=== PATIENT | female | born 1980 | race Caucasian/White ===

== ENCOUNTER 2016-12-25 08:51 | Emergency (ER) | payer SELFPAY ==
--- NOTE | ~2016-12-25 | ER ---
PATIENT'S NAME: ESTEFANIA HUSAIN [facility] AGE: 36 Y [address] ROOM: [place] [address] LOCATION: [facility] ADMIT DATE: 12/25/2016 ER/Outpatient Report DISCHARGE DATE: 12/25/2016 FAMILY PHYSICIAN: Duke Burkett MD ATTENDING PHYSICIAN: Mariza Andrew Time of Arrival: 0851 hours. Time Seen: 0907 hours. IDENTIFICATION: A 36-year-old female. CHIEF COMPLAINT: Left side pain. HISTORY OF PRESENT ILLNESS: The patient is a 36-year-old female who presents with complaints of pain in her left upper abdomen, lower chest area, worse with a deep breath. She has been coughing for a week, cough productive of yellow sputum. No fever or chills. She was evaluated at the [facility] yesterday and reports that she had a CAT scan. She was told she was constipated. She has no ill contacts. No nausea or vomiting. ALLERGIES: PENICILLIN. CURRENT MEDICATIONS: Denies. MEDICAL PROBLEMS: Denies. PRIOR SURGERIES: Cholecystectomy. SOCIAL HISTORY: The patient lives here in [facility]. Tobacco use, half pack per day. Alcohol use, denies. Drug use, denies. REVIEW OF SYSTEMS: All systems reviewed and negative other than what is noted in the HPI. FAMILY HISTORY: No pertinent family history identified. PATIENT'S NAME: ESTEFANIA HUSAIN [facility] AGE: 36 Y [address] ROOM: [place] [address] LOCATION: ED ADMIT DATE: 12/25/2016 ER/Outpatient Report DISCHARGE DATE: 12/25/2016 FAMILY PHYSICIAN: Duke Burkett MD ATTENDING PHYSICIAN: Mariza Andrew PHYSICAL EXAMINATION: VITAL SIGNS: Weight 142.3 kg, pulse 104, respirations 22, temperature 96.8, and sats 98%, blood pressure 150/86. Recheck of vital signs; blood pressure 138/96, pulse 105, respirations 20, temperature 96.8, and saturations 97%. Pain improved from an 8 to a 3 with Toradol. HEENT: Head; normocephalic, atraumatic. Ears; TMs translucent, AU. Eyes; pupils equal and reactive to light and accommodation. Extraocular movements intact. Nose; mucosa pink. No lesions or drainage. Mouth; no lesions. Pharynx benign. NECK: Supple. No lymphadenopathy. No thyromegaly. LUNGS: Clear to auscultation. Breath sounds are equal. No rhonchi, wheezes, or rales. HEART: Sinus tachycardia. No murmur, rub, or gallop. ABDOMEN: Bowel sounds present. Soft, nondistended. No hepatosplenomegaly. No palpable masses. Nontender. No CVA tenderness. SKIN: [place], warm, and dry. No lesions or rashes noted. NEURO: No focal deficit. LABORATORY DATA AND X-RAYS: UA is negative. Urine HCG is negative. Hemoglobin 15.2, hematocrit 45.5, platelets 304, white count 10.6 with a normal differential. Sodium 138, potassium 4.0, chloride 103, CO2 of 25, BUN 6, creatinine 0.8, blood sugar 101. Liver enzymes normal. Amylase 23, lipase 115. D-dimer 0.45. Labs and results were reviewed from [facility]. CT scan of the abdomen and pelvis with IV contrast for left upper quadrant pain showed mild cardiomegaly without CHF, moderate fatty infiltration of the liver, pleural thickening versus tiny left pleural effusion, status post cholecystectomy, degenerative changes of the lumbar spine. Acute abdominal x-ray series; moderate amount of stool present, borderline cardiomegaly. Sedimentation rate 7. Amylase 26, lipase 19. CRP 1.02. This is on 12/24/2016 at 0001 hours. Sodium 136, potassium 4.4, chloride 103, CO2 of 23, BUN 7, creatinine 0.82, blood sugar 121. Liver enzymes normal. Albumin low at 3.3. Hemoglobin 16.8, hematocrit 52, platelets 323, white count 12.0 with 53% neutrophils, 38% lymphocytes. UA; specific gravity less than or equal to 1.005, pH 6.0, 3 to 5 red cells, 3 to 5 white cells, no bacteria. Report was reviewed showing abdominal pain, maybe secondary to constipation. Abdominal pain instructions and followup with primary care physician recommended. The patient sees Dr. Duke Burkett for primary care but has not followed up with him for this. The patient was given Toradol here with improvement of her pain. Chest x-ray, 2 view, no acute process per Dr. Roth; when I reviewed this, I did see some left pleural effusion. IMPRESSION: Left pleural effusion, pleuritic chest pain. PATIENT'S NAME: ESTEFANIA HUSAIN [facility] AGE: 36 Y [address] ROOM: [place] [address] LOCATION: [facility] ADMIT DATE: 12/25/2016 ER/Outpatient Report DISCHARGE DATE: 12/25/2016 FAMILY PHYSICIAN: Duke Burkett MD ATTENDING PHYSICIAN: Mariza Andrew PLAN: Z-Shady as directed. Tylenol or ibuprofen for pain. Toradol given here with improvement. Ice or heat. [place] for severe pain. Smoking cessation discussed. Follow up with Dr. Burkett in 2 to 7 days. Follow up sooner if any problems or concerns. The patient understands and agrees, and all questions have been answered. MARIZA ANDREW MD CAR/modl /[id number] d: 12/25/162321 t: 12/27/16 1422, OUTPATIENT REPORT
[2016-12-25 09:34] LABS: BILIRUBIN URINE NEGATIVE (NEGATIVE); BLOOD URINE NEGATIVE /UL (NEGATIVE); COLOR URINE YELLOW (YELLOW); GLUCOSE URINE NEGATIVE (NEGATIVE); KETONE URINE NEGATIVE (NEGATIVE); LEUKOCYTES URINE NEGATIVE /UL (NEGATIVE); NITRITE URINE NEGATIVE (NEGATIVE); PH URINE 6.5 (4.0-8.0); PROTEIN URINE NEGATIVE (NEGATIVE); TURBIDITY URINE CLEAR (CLEAR); UROBILINOGEN URINE NORMAL (NORMAL)
[2016-12-25 09:41] LABS: BASOPHIL % 0.3 %; EOSINOPHIL # 0.2 K/uL (0.0-0.5); EOSINOPHIL % 1.4 %; HEMATOCRIT 45.5 % (33.0-46.0); HEMOGLOBIN 15.2 g/dL (11.0-15.0); IMMATURE GRANULOCYTE % 0.4 %; LYMPHOCYTE # 2.7 K/uL (0.8-4.0); MCH 30.4 pg (27.0-34.0); MCHC 33.4 gm/dL (32.0-36.5); MONOCYTE # 0.7 K/uL (0.0-1.0); MONOCYTE % 6.2 %; NEUTROPHIL # (ANC) 7.1 K/uL (1.8-7.8); NEUTROPHIL % 66.7 %; NRBC % 0 /100WBC (0-0.00); PLATELET COUNT 304 K/uL (150-450); WBC 10.6 K/uL (4.0-11.0)
[2016-12-25 09:58] LABS: ALBUMIN 2.9 gm/dL (3.5-5.0); ALK PHOS 63 IU/L (33-138); ALT 31 IU/L (12-78); AST 14 IU/L (10-40); BLOOD UREA NITROGEN 6 mg/dL (6-24); CALCIUM 8.3 mg/dL (8.5-10.5); CHLORIDE 103 mMol/L (96-110); CO2 25 mMol/L (22-32); CREATININE 0.8 mg/dL (0.5-1.1); ESTIMATED GFR (MDRD EQUATION) > 60; SODIUM 138 mMol/L (135-145); TOTAL BILIRUBIN 0.3 mg/dL (0.0-1.5); TOTAL PROTEIN 6.8 g/dL (6.0-8.4)
== END 2016-12-25 11:47 | disposition disaster alternative care site (69) ==
LOC: GMED 08:51
PROVIDERS: Family Medicine
DX: J90 Pleural effusion, not elsewhere classified (principal); F17.210 Nicotine dependence, cigarettes, uncomplicated; Z90.49 Acquired absence of other specified parts of digestive tract; Z88.0 Allergy status to penicillin
CPT/HCPCS: J1885

== ENCOUNTER 2017-01-14 22:20 | Emergency (ER) | payer SELFPAY ==
--- NOTE | ~2017-01-14 | ER ---
PATIENT'S NAME: ESTEFANIA HUSAIN [facility] AGE: 36 Y [address] ROOM: [place] [address] LOCATION: ED ADMIT DATE: 01/14/2017 ER/Outpatient Report DISCHARGE DATE: FAMILY PHYSICIAN: Duke Burkett MD ATTENDING PHYSICIAN: Aguilar Cutler Time Seen: 2225 hours. CHIEF COMPLAINT: Short of breath, fatigue, and left-sided chest pain. HISTORY OF PRESENT ILLNESS: The patient is a 36-year-old female who states since 12/25/2016 she has had left-sided chest pain, shortness of breath, fatigue. She was seen in the emergency room at [facility], and at that time, she had some abdominal pain. CT of her abdomen did not show any significant findings other than a fatty liver. She was also then seen two weeks ago by Dr. Toledo. Her D-dimer was normal as well as her chest x-ray and lab work. She was advised to follow up with Dr. Duke Burkett, but she failed to do so. ALLERGIES: TO PENICILLIN AND MORPHINE. CURRENT MEDICATIONS: None. MEDICAL HISTORY: Includes cholecystectomy. She denies any diabetes or hypertension. She has had problems with excessive weight. SOCIAL HISTORY: Smoker, half pack a day. Says in the distant past she had used drugs. REVIEW OF SYSTEMS: GENERAL: No fevers or chills but has had fatigue. HEAD/EENT: Denies any migraines, visual changes, sore throat. RESPIRATORY: Has had a cough. She is a smoker. She has had intermittent left-sided chest pain since 12/25/2016. No hemoptysis. She does feel short of breath. She does have some exercise intolerance. CARDIOVASCULAR: Some slight swelling in her ankles. No substernal chest pain. GASTROINTESTINAL: She has had weight gain. No diarrhea. No vomiting. GENITOURINARY: No dysuria or frequent urinations. MUSCULOSKELETAL: Denies any calf tenderness. PATIENT'S NAME: ESTEFANIA HUSAIN [facility] AGE: 36 Y [address] ROOM: [place] [address] LOCATION: [facility] ADMIT DATE: 01/14/2017 ER/Outpatient Report DISCHARGE DATE: FAMILY PHYSICIAN: Duke Burkett MD ATTENDING PHYSICIAN: Aguilar Cutler OBJECTIVE FINDINGS: VITAL SIGNS: Blood pressure 147/88, temperature is 96.8, respiratory rate was 16, pulse 108, O2 sats 99% on room air. GENERAL APPEARANCE: She is alert, somewhat anxious. She is overweight. HEENT: Head, normocephalic. Eyes, PERRLA. No icterus. Extraocular muscles intact. Nose, septum midline. Mouth, oral membranes were moist. Tongue midline. NECK: No jugular venous distention. No thyromegaly. LUNGS: Peripherally sounded clear. HEART: Tones distant, but regular. ABDOMEN: Obese but soft. No guarding, no rebound. EXTREMITIES: Trace edema in her ankles, but no calf tenderness. NEUROLOGICAL: Oriented x3. LABORATORY DATA AND X-RAYS: Her lab work here; D-dimer was elevated at 0.68. TSH was 1.210. CBC; white count 10.3, hemoglobin 15.4, ANC was 5.0. Her GFR 2 weeks ago was within normal limits. CT of her lung per PE protocol was negative for any pulmonary emboli. ASSESSMENT: 1. Left-sided chest pain, shortness of breath, with no findings of pulmonary emboli. 2. Excessive weight. 3. Anxiety. PLAN: Xanax 0.25 one t.i.d. Recommend that she make an appointment with Dr. Duke Burkett for followup, which she said she would do. KAROLYN LAM FOR MD ARSLAN SONG/sharita /[id number] d: 01/15/172 t: 01/21/17 1212, OUTPATIENT REPORT
[2017-01-14 23:06] LABS: BASOPHIL % 0.4 %; EOSINOPHIL # 0.2 K/uL (0.0-0.5); EOSINOPHIL % 1.7 %; HEMATOCRIT 46.2 % (33.0-46.0); HEMOGLOBIN 15.4 g/dL (11.0-15.0); IMMATURE GRANULOCYTE % 0.2 %; LYMPHOCYTE # 4.4 K/uL (0.8-4.0); LYMPHOCYTE % 42.4 %; MCH 30.4 pg (27.0-34.0); MCHC 33.3 gm/dL (32.0-36.5); MCV 91.1 fl (83.0-98.0); MONOCYTE # 0.7 K/uL (0.0-1.0); MONOCYTE % 6.4 %; MPV 10.1 fl (9.4-12.4); NEUTROPHIL % 48.9 %; NRBC % 0 /100WBC (0-0.00); PLATELET COUNT 250 K/uL (150-450); RBC 5.07 M/uL (3.50-5.50); RDW-CV 13.4 % (11.9-14.6); WBC 10.3 K/uL (4.0-11.0)
== END 2017-01-15 00:52 ==
LOC: GMED 22:20
PROVIDERS: Physician Assistant Medical
DX: R07.9 Chest pain, unspecified (principal); R06.02 Shortness of breath; E66.3 Overweight; F41.9 Anxiety disorder, unspecified; F17.210 Nicotine dependence, cigarettes, uncomplicated
CPT/HCPCS: Q9967

== ENCOUNTER 2017-05-13 19:24 | Emergency (ER) | payer SELFPAY ==
--- NOTE | ~2017-05-13 | ER ---
PATIENT'S NAME: ESTEFANIA HUSAIN [facility] AGE: 36 Y [address] ROOM: [place] [address] LOCATION: [facility] ADMIT DATE: 05/13/2017 ER/Outpatient Report DISCHARGE DATE: 05/13/2017 FAMILY PHYSICIAN: Duke Burkett MD ATTENDING PHYSICIAN: Fabian Do TIME OF ARRIVAL: 1924 hours. TIME OF EVALUATION: 1935 hours. CHIEF COMPLAINT: Right lower quadrant abdominal pain. HISTORY OF PRESENT ILLNESS: The patient is a 36-year-old female, who presents to the emergency department today with a chief complaint of right lower quadrant abdominal pain. She reports this started about 5:30 this morning. It is 9.5/10 in severity. She does report her boyfriend was recently started with STD and that she does have pain with urination. She denies any fevers or chills. No nausea or vomiting. No diarrhea or constipation. No urinary frequency, urgency. No blood in her urine. It is a sharp type pain. PAST MEDICAL HISTORY: Hypertension. PAST SURGICAL HISTORY: Cholecystectomy. SOCIAL HISTORY: The patient smokes a pack per day. Denies any alcohol use. 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 ALLERGIES: PENICILLIN. MEDICATIONS: None. PRIMARY CARE DOCTOR: Duke Burkett MD. REVIEW OF SYSTEMS: All systems are reviewed by myself and are negative with the exception of PATIENT'S NAME: ESTEFANIA HUSAIN [facility] AGE: 36 Y [address] ROOM: [place] [address] LOCATION: [facility] ADMIT DATE: 05/13/2017 ER/Outpatient Report DISCHARGE DATE: 05/13/2017 FAMILY PHYSICIAN: Duke Burkett MD ATTENDING PHYSICIAN: Fabian Do those discussed in the HPI and past medical history. PHYSICAL EXAMINATION: VITAL SIGNS: Weight 124.5 kg, blood pressure 133/100, pulse 123, respiratory rate 22, temperature 97.9, oxygen saturation 95% on room air. GENERAL: The patient is a 36-year-old female, who appears stated age, obese, in mild acute distress. HEENT: Normocephalic, atraumatic. Pupils are equal, round, and reactive to light. Extraocular motions are intact. Nares are patent bilaterally. TMs are clear. Oropharynx is clear. NECK: Supple. There is no nuchal rigidity. CARDIOVASCULAR: Tachycardic. No murmurs, rubs, or gallops. LUNGS: Clear to auscultation bilaterally. No wheezes, rales, or rhonchi. ABDOMEN: Soft, [id number] right lower quadrant tenderness to palpation. There is no rebound, rigidity, or guarding. Positive bowel sounds. MUSCULOSKELETAL: The patient moves all 4 extremities. SKIN: Warm and dry. There are no rashes or lesions noted. LABORATORY DATA AND X-RAYS: Labs and x-ays are obtained. Urinalysis shows 100 leukocyte esterase, 100 protein, 25 blood, 10-20 wbc's, 0-2 rbc's, 20-50 epithelials, many bacteria, few WBC clumps. Urine HCG is negative. CBC: White blood cell count 18.2, hemoglobin 17.5, hematocrit 50.7, otherwise normal. CMP is unremarkable. T- bilirubin is 1.8. LFTs normal. Lactate is normal. CT scan of the abdomen and pelvis with and without IV contrast was obtained. I have discussed results with the radiologist. It shows no acute process. The appendix appears normal. GC and chlamydia are negative. IMPRESSION: 1. Acute nonsurgical right lower quadrant abdominal pain. 2. Acute urinary tract infection, suspect bladder. 3. Initial visit. EMERGENCY DEPARTMENT COURSE: The patient was brought back to the examination room. Seen and evaluated by myself. IV is established. Laboratory analysis and imaging are obtained as described above. The patient was given a liter of normal saline IV as well as 30 mg of Toradol IV and 4 mg of Zofran IV. She was then given 5 mg of morphine IV. This has resulted in significant improvement the patient's pain. I have reassessed the patient's abdominal exam at this time, she continues to have a nonsurgical abdominal exam at this time. I have discussed results with the patient. I have asked she follows up with Dr. Duke Burkett in 1 day for reevaluation. Repeat heart rate is at 108. The patient is agreeable. I have discussed return to care instructions including worsening symptoms or any other concerns to return to the emergency department as soon as possible. PATIENT'S NAME: ESTEFANIA HUSAIN [facility] AGE: 36 Y [address] ROOM: [place], [place] [address] LOCATION: [facility] ADMIT DATE: 05/13/2017 ER/Outpatient Report DISCHARGE DATE: 05/13/2017 FAMILY PHYSICIAN: Duke Burkett MD ATTENDING PHYSICIAN: Fabian Do DISPOSITION: The patient is discharged to home in good condition. DO MERON LEVINE/sharita /[id number] d: 05/14/17 0145 t: 05/14/17 1823, OUTPATIENT REPORT
[2017-05-13 19:58] LABS: BILIRUBIN URINE NEGATIVE (NEGATIVE); BLOOD URINE 25 /UL (NEGATIVE); COLOR URINE YELLOW (YELLOW); GLUCOSE URINE NEGATIVE (NEGATIVE); KETONE URINE NEGATIVE (NEGATIVE); LEUKOCYTES URINE 100 /UL (NEGATIVE); NITRITE URINE NEGATIVE (NEGATIVE); PROTEIN URINE 100 mg/dL (NEGATIVE); SPEC GRAVITY URINE 1.025 (1.003-1.035); TURBIDITY URINE 3+ (CLEAR); UROBILINOGEN URINE 1 mg/dL (NORMAL)
[2017-05-13 20:04] LABS: BASOPHIL # 0.1 K/uL (0.0-0.2); BASOPHIL % 0.3 %; EOSINOPHIL % 0.2 %; HEMATOCRIT 50.7 % (33.0-46.0); HEMOGLOBIN 17.5 g/dL (11.0-15.0); IMMATURE GRANULOCYTE # 0.1 K/uL (0.0-0.3); IMMATURE GRANULOCYTE % 0.4 %; LYMPHOCYTE # 4.5 K/uL (0.8-4.0); LYMPHOCYTE % 24.7 %; MCH 30.3 pg (27.0-34.0); MCHC 34.5 gm/dL (32.0-36.5); MCV 87.9 fl (83.0-98.0); MONOCYTE % 5.2 %; MPV 10.5 fl (9.4-12.4); NEUTROPHIL # (ANC) 12.6 K/uL (1.8-7.8); NEUTROPHIL % 69.2 %; NRBC % 0 /100WBC (0-0.00); PLATELET COUNT 252 K/uL (150-450); RBC 5.77 M/uL (3.50-5.50); RDW-CV 13.8 % (11.9-14.6)
[2017-05-13 20:12] LABS: WBC 18.2 K/uL (4.0-11.0)
[2017-05-13 20:12] LABS: EPITHELIAL URINE 20-50 #/HPF (NEGATIVE)
[2017-05-13 20:15] LABS: RBC URINE 0-2 #/HPF (NEGATIVE)
[2017-05-13 20:18] LABS: WBC CLUMPS URINE FEW (NEGATIVE)
[2017-05-13 20:20] LABS: ALBUMIN 3.5 gm/dL (3.5-5.0); ANION GAP 11.8 (10.0-19.0); CALCIUM 8.6 mg/dL (8.5-10.5); CREATININE 0.9 mg/dL (0.5-1.1); POTASSIUM 3.8 mMol/L (3.7-5.1); TOTAL BILIRUBIN 1.8 mg/dL (0.0-1.5); TOTAL PROTEIN 7.7 g/dL (6.0-8.4)
[2017-05-13 20:25] LABS: BACTERIA URINE MANY (NEGATIVE)
== END 2017-05-13 21:52 | disposition disaster alternative care site (69) ==
LOC: GMED 19:24
PROVIDERS: Emergency Medicine
DX: N39.0 Urinary tract infection, site not specified (principal); I10 Essential (primary) hypertension; F17.210 Nicotine dependence, cigarettes, uncomplicated; Z88.0 Allergy status to penicillin; Z90.49 Acquired absence of other specified parts of digestive tract
CPT/HCPCS: J1885; J2270; J2405; J7030; Q9967